=== PATIENT | female | born 1965 | race Caucasian/White ===

== ENCOUNTER 2022-09-01 05:07 | Emergency (ER) | payer SELFPAY ==
[2022-09-01] MEDS ORDERED: predniSONE 20 MG TAB ONE (06:31)
[2022-09-01] MEDS ORDERED: AMOXicillin 250 MG CAP ONE (06:31)
== END 2022-09-01 06:30 | disposition home or self-care (01) ==
LOC: BURERS 05:07
DX: J02.0 Streptococcal pharyngitis (principal); F17.210 Nicotine dependence, cigarettes, uncomplicated
CPT/HCPCS: 87081; 87430; 99283; J7512

== ENCOUNTER 2022-09-01 19:14 | Emergency (ER) | payer SELFPAY ==
[~2022-09-01 19:14] MED LIST: Iopamidol 370 76% 100 ML VIAL ONE
[2022-09-01] MEDS ORDERED: Morphine 2 MG/ML VIAL ONE (19:36)
[2022-09-01] MEDS ORDERED: Sodium Chloride 0.9% 100 ML ONE (19:36)
[2022-09-01] MEDS ORDERED: cefTRIAXone\\ROCEPHIN 2 GM VIAL ONE (19:36)
[2022-09-01] MEDS ORDERED: Ondansetron PF 4 MG/2 ML Vial ONE (19:36)
[2022-09-01 20:21] LABS: Hemoglobin 11.6 g/dL (12.0-16.0); Mean Corpuscular HGB CONC 33.3 g/dL (32.0-36.0); Mean Corpuscular Hemoglobin 26.4 pg (27.0-31.0); Mean Corpuscular Volume 79.2 fl (78.0-98.0); Mean Platelet Volume 7.7 fL (7.4-10.4); Platelet Count 370 10x3/uL (130-400); RBC Distribution Width 14.6 % (11.5-14.5); Red Blood Cell (RBC) Count 4.42 mill/uL (4.20-5.40); White Blood Cell (WBC) Count 23.7 10x3/uL (4.8-10.8)
[2022-09-01 20:33] LABS: Band 2 % (5-11); Lymphocytes 7 % (21-51); MDiff Complete? YES; Monocytes 2 % (0-10); Neutrophil 89 % (42-75); RBC Morphology Normal
[2022-09-01 21:17] LABS: ALT (SGPT) 19 U/L (8-55); AST (SGOT) 25 U/L (5-34); Albumin 3.9 g/dL (3.5-5.0); Alkaline Phosphatase 79 U/L (40-110); Anion Gap 14 mmol/L (10-20); BUN (Urea Nitrogen) 18 mg/dL (9.8-20.1); Bilirubin, Total 1.4 mg/dL (0.2-1.2); Calc. Creatinine Clearance 0 mL/min (70-130); Carbon Dioxide 20 mmol/L (22-29); Chloride 106 mmol/L (98-107); Estimated GFR 101; Globulin 3.4 g/dL (2.4-3.5); Glucose 107 mg/dL (70-105); Potassium 3.7 mmol/L (3.5-5.1); Protein, Total 7.3 g/dL (6.0-8.3); Sodium 136 mmol/L (136-145)
[2022-09-01] MEDS ORDERED: Lorazepam 2 MG/ML VIAL ONE (21:24)
[2022-09-01] MEDS ORDERED: Dexamethasone 10 MG/ML VIAL ONE (21:25)
== END 2022-09-01 22:14 | disposition home or self-care (01) ==
LOC: BURERS 19:14
DX: J03.90 Acute tonsillitis, unspecified (principal); F17.210 Nicotine dependence, cigarettes, uncomplicated
CPT/HCPCS: 10060; 36415; 70491; 80053; 83605; 85025; 87040; 96365; 96375; J0696; J1100; J2060; J2272; J2405; J3490; Q9967